=== PATIENT | male | born 1950 | race Caucasian/White ===

== ENCOUNTER → 2019-02-12 | Outpatient (CLI) | payer SELFPAY ==
[~2019-02-12] MED LIST: EPIVIR150 MG PO; HYTRIN1 MG PO; INTELENCE100 MG PO; ISENTRESS400 MG PO; NORVIR100 MG PO; PREZISTA600 MG PO; SYNTHROID150 MCG PO; imodium
== END | disposition home or self-care (01) ==
LOC: CAT 13:00
DX: R07.9 Chest pain, unspecified (principal)